=== PATIENT | female | born 1980 | race Caucasian/White ===

== ENCOUNTER → 2016-05-12 | Outpatient (CLI) | payer OTHER ==
[~2016-05-12] MED LIST: ACET-1256 PO; GABA-113 PO; IBUP-1050 PO; OMEP40CA PO; OXYC-57 PO
[2016-05-12 18:25] LABS: BASO % 0.6 %; BASO ABS # 0.05 K/uL (0-0.2); COMPLETE YES; EOS % 2.1 %; HEMATOCRIT 38.8 % (37-47); IG% 0.1 %; LYMPH % 30.2 %; MEAN CELL VOLUME 93.5 fL (80-100); MEAN CORPUSCULAR HEMOGLOBIN 32.3 pg (25-34); MEAN CORPUSCULAR HGB CONC 34.5 g/dl (32-36); MONO % 6.3 %; NEUT % 60.7 %; PLATELET COUNT 255 K/uL (130-400); RED BLOOD COUNT 4.15 M/uL (4.2-5.4); WHITE BLOOD COUNT 8.27 K/uL (4.8-10.8)
[2016-05-12 18:34] LABS: ALT/SGPT 50 U/L (12-78); BLOOD UREA NITROGEN 17 mg/dl (7-18); BUN/CREATININE RATIO 23.6 (10-20); CALCIUM 8.8 mg/dl (8.5-10.1); CARBON DIOXIDE 26 mmol/L (21-32); CHLORIDE 106 mmol/L (98-107); GLUCOSE 98 mg/dl (70-99); POTASSIUM 3.3 mmol/L (3.5-5.1); SODIUM 141 mmol/L (136-145)
[2016-05-12 18:37] LABS: ALB/GLOB RATIO 1.1 (0.9-2); ALKALINE PHOSPHATASE 79 U/L (45-117); AST/SGOT 23 U/L (15-37)
--- NOTE | 2016-05-26 08:09 | CODING QUERY NO DIAGNOSIS ---
TREATMENT RENDERED WITHOUT A DIAGNOSIS To promote full compliance with coding requirements relating to patient care, physician participation is requested in all cases of time study analyst uncertainty. Please assist us with providing a diagnosis/symptom for the test(s) below: A diagnosis/symptom was not documented on your Order. A valid diagnosis/symptom is required to bill all insurances. Please remember that we are unable to code a diagnosis of rule out, probable, possible, questionable, or suspected. Tests that require a diagnosis: DOS 05/12 * CBC DIAGNOSIS: * ESR DIAGNOSIS: * CMP DIAGNOSIS: Provider Signature: Date: Thank you Sudha Patel [facility] Information Management Once completed, please kindly fax back to [phone] For questions please call [phone]
== END | disposition home or self-care (01) ==
LOC: C.LABMFLN 11:07
PROVIDERS: ATTEND Family Medicine
DX: R51 Headache (principal)

== ENCOUNTER → 2016-06-25 | Outpatient (CLI) | payer OTHER | END | disposition home or self-care (01) | LOC: C.LABMFLN 12:15 | PROVIDERS: ATTEND Family Medicine | DX: E87.6 Hypokalemia (principal) ==